=== PATIENT | male | born 1985 | race African-American/Black ===

== ENCOUNTER 2018-03-26 11:34 | Emergency (ER) | payer MEDICAID, MEDICARE ==
[~2018-03-26] VITALS: Ht 172.7 cm; Wt 86.0 kg
[~2018-03-26 11:34] MED LIST: ALBU18HF2 IH
[2018-03-26 12:19] VITALS: BP 132/88
[2018-03-26] MEDS ORDERED: KETOROLAC 30MG/ML VIAL IV STA (12:22)
[2018-03-26] MEDS ORDERED: FAMOTIDINE 20MG/2ML VIAL IV STA (12:22)
[2018-03-26] MEDS ORDERED: SODIUM CHLORIDE 0.9% 1,000 ML IV ONE (12:22)
[2018-03-26 13:29] LABS: BASOPHILS % 0.8 % (0.0-2.0); HEMATOCRIT. 45.1 % (42.0-52.0); HEMOGLOBIN. 14.8 g/dL (14.0-18.0); LYMPHOCYTES % 18.8 % (20.0-50.0); MEAN CORPUSCULAR HEMOGLOBIN 29.2 pg (28.0-32.0); MEAN CORPUSCULAR VOLUME 89.1 fL (80.0-94.0); MEAN PLATELET VOLUME 8.6 fl (7.4-10.4); NEUTROPHILS % 63.4 % (40.0-76.0); PLATELET 245 x1000/uL (130-400); RED BLOOD CELL COUNT 5.06 mill/uL (4.7-6.1); RED CELL DISTRIBUTION WIDTH 13.8 % (11.6-14.6)
[2018-03-26 13:47] LABS: CHLORIDE 108 mEq/L (98-107)
[2018-03-26] MEDS ORDERED: MAGNESIUM/ALUMINUM HYDROXIDE/SIMETHICONE 30ML UDC PO STA (14:12)
[2018-03-26] MEDS ORDERED: FAMOTIDINE 20MG TABLET PO ONE (14:15)
== END 2018-03-26 14:57 | disposition home or self-care (01) ==
LOC: ER 13:12
DX: R10.13 Epigastric pain (principal); F17.200 Nicotine dependence, unspecified, uncomplicated; Z79.899 Other long term (current) drug therapy
CPT/HCPCS: 36415; 76700; 80053; 83690; 85025; 99285; J7030

== ENCOUNTER 2018-03-30 17:05 | Emergency (ER) | payer MEDICARE ==
[~2018-03-30] VITALS: Ht 172.7 cm; Wt 86.0 kg
[2018-03-30] MEDS ORDERED: ONDANSETRON HCL 4MG/2ML VIAL IV STA (17:47)
[2018-03-30] MEDS ORDERED: MAGNESIUM/ALUMINUM HYDROXIDE/SIMETHICONE 30ML UDC PO STA (17:47)
[2018-03-30] MEDS ORDERED: SODIUM CHLORIDE 0.9% 1,000 ML IV ONE (17:47)
[2018-03-30] MEDS ORDERED: MORPHINE SULFATE 4 MG/ML CPJ (NOT FOR IM USE) IV STA (17:47)
[2018-03-30] MEDS ORDERED: KETOROLAC 30MG/ML VIAL IV STA (17:47)
[2018-03-30 17:52] LABS: BASOPHILS % 0.8 % (0.0-2.0); EOSINOPHILS % 8.5 % (0.0-5.0); HEMATOCRIT. 42.9 % (42.0-52.0); HEMOGLOBIN. 14.1 g/dL (14.0-18.0); LYMPHOCYTES % 16.8 % (20.0-50.0); MEAN CORPUSCULAR HEMOGLOBIN 29.1 pg (28.0-32.0); MEAN CORPUSCULAR VOLUME 88.3 fL (80.0-94.0); MEAN PLATELET VOLUME 8.3 fl (7.4-10.4); NEUTROPHILS % 66.9 % (40.0-76.0); PLATELET 223 x1000/uL (130-400); RED BLOOD CELL COUNT 4.85 mill/uL (4.7-6.1); RED CELL DISTRIBUTION WIDTH 13.7 % (11.6-14.6)
[2018-03-30 17:59] LABS: CHLORIDE 110 mEq/L (98-107)
[2018-03-30 18:00] LABS: INR 1.1; PROTHROMBIN TIME 11.5 sec (9.1-11.1)
[2018-03-30] MEDS ORDERED: FAMOTIDINE 20MG/2ML VIAL IV ONE (20:30)
[2018-03-30 20:50] VITALS: BP 115/73
== END 2018-03-30 20:53 | disposition home or self-care (01) ==
LOC: ER 17:05
DX: K29.70 Gastritis, unspecified, without bleeding (principal); G47.00 Insomnia, unspecified; R03.0 Elevated blood-pressure reading, without diagnosis of hypertension
CPT/HCPCS: 36415; 74176; 80053; 83690; 84484; 85025; 85610; 96361; 96374; 96375; 99285; G0482; J1885; J2270; J2405; J3490; J7030; Z7610

== ENCOUNTER 2018-04-02 20:32 | Emergency (ER) | payer MEDICARE ==
[~2018-04-02] VITALS: Ht 172.7 cm; Wt 88.0 kg
[2018-04-02 21:52] LABS: BASOPHILS % 0.9 % (0.0-2.0); EOSINOPHILS % 10.2 % (0.0-5.0); HEMATOCRIT. 45.3 % (42.0-52.0); LYMPHOCYTES % 19.7 % (20.0-50.0); MEAN CORPUSCULAR HEMOGLOBIN 29.4 pg (28.0-32.0); MEAN CORPUSCULAR VOLUME 88.7 fL (80.0-94.0); MEAN PLATELET VOLUME 8.7 fl (7.4-10.4); NEUTROPHILS % 61.2 % (40.0-76.0); PLATELET 245 x1000/uL (130-400); RED BLOOD CELL COUNT 5.11 mill/uL (4.7-6.1); RED CELL DISTRIBUTION WIDTH 13.3 % (11.6-14.6)
[2018-04-02 21:59] LABS: CHLORIDE 105 mEq/L (98-107)
[2018-04-02 22:02] LABS: PROTHROMBIN TIME 10.5 sec (9.1-11.1)
[2018-04-02] MEDS ORDERED: MAGNESIUM/ALUMINUM HYDROXIDE/SIMETHICONE 30ML UDC PO STA (23:23)
[2018-04-02] MEDS ORDERED: ONDANSETRON HCL 4MG/2ML VIAL IV STA (23:23)
[2018-04-02] MEDS ORDERED: HYDROCODONE/ACETAMINOPHEN 5/325MG TABLET PO STA (23:23)
[2018-04-02] MEDS ORDERED: VISCOUS LIDOCAINE 2% 15 ML UDC PO STA (23:23)
[2018-04-02] MEDS ORDERED: ONDANSETRON HCL 4MG TABLET PO ONE (23:45)
[2018-04-03 01:44] VITALS: BP 97/71
== END 2018-04-03 01:47 | disposition home or self-care (01) ==
LOC: ER 20:32
DX: K85.90 Acute pancreatitis without necrosis or infection, unspecified (principal); J45.909 Unspecified asthma, uncomplicated; F12.10 Cannabis abuse, uncomplicated; F15.10 Other stimulant abuse, uncomplicated; F17.200 Nicotine dependence, unspecified, uncomplicated
CPT/HCPCS: 36415; 80053; 83690; 85025; 85610; 96374; 99284; Q0162

== ENCOUNTER 2018-06-03 02:02 | Emergency (ER) | payer MEDICARE ==
[~2018-06-03] VITALS: Ht 172.7 cm; Wt 83.0 kg
[2018-06-03 02:04] VITALS: BP 113/86
== END 2018-06-03 03:17 | disposition left against medical advice (07) ==
LOC: ER 02:02
DX: Z53.21 Procedure and treatment not carried out due to patient leaving prior to being seen by health care provider (principal)

== ENCOUNTER 2018-06-06 18:20 | Emergency (ER) | payer MEDICARE ==
[~2018-06-06] VITALS: Ht 172.7 cm; Wt 78.0 kg
[2018-06-06 18:21] VITALS: BP 121/82
== END 2018-06-06 18:54 | disposition left against medical advice (07) ==
LOC: ER 18:20
DX: Z53.21 Procedure and treatment not carried out due to patient leaving prior to being seen by health care provider (principal)

== ENCOUNTER 2018-06-06 19:59 | Emergency (ER) | payer MEDICARE ==
[~2018-06-06] VITALS: Ht 172.7 cm; Wt 80.4 kg
[2018-06-06 21:37] LABS: CLARITY URINE CLEAR (CLEAR); COLOR URINE DARK YELLOW (YELLOW); KETONES URINE 1+ (NEGATIVE); LEUKOCYTE ESTERASE URINE NEGATIVE (NEGATIVE); NITRITE URINE NEGATIVE (NEGATIVE); OCCULT BLOOD URINE NEGATIVE (NEGATIVE); PH URINE 5.5 (4.5-8.0); PROTEIN URINE 1+ (NEGATIVE); SPECIFIC GRAVITY URINE 1.039 (1.005-1.030); UROBILINOGEN URINE 0.2 E.U./dL (0.2-1.0)
[2018-06-06 21:49] LABS: *BARBITURATES SCREEN URINE PRESUMTIVE POSITIVE (NEGATIVE); *BENZODIAZEPINES SCREEN URINE NEGATIVE (NEGATIVE); *COCAINE SCREEN URINE NEGATIVE (NEGATIVE)
[2018-06-06 21:51] LABS: *AMPHETAMINES SCREEN URINE PRESUMTIVE POSITIVE (NEGATIVE); CANNABINOID URINE SCREEN PRESUMTIVE POSITIVE (NEGATIVE); METHADONE URINE SCREEN NEGATIVE (NEGATIVE); OPIATES URINE SCREEN NEGATIVE (NEGATIVE); PHENCYCLIDINE URINE SCREEN NEGATIVE (NEGATIVE)
[2018-06-06 23:30] VITALS: BP 124/78
== END 2018-06-06 23:30 | disposition home or self-care (01) ==
LOC: ER 19:59
DX: R06.03 Acute respiratory distress (principal); T43.621A Poisoning by amphetamines, accidental (unintentional), initial encounter; F15.10 Other stimulant abuse, uncomplicated; Y92.89 Other specified places as the place of occurrence of the external cause; R03.0 Elevated blood-pressure reading, without diagnosis of hypertension
CPT/HCPCS: 71045; 80305; 99285

== ENCOUNTER 2018-08-07 21:42 | Emergency (ER) | payer MEDICARE | END 2018-08-07 22:01 | disposition left against medical advice (07) | LOC: ER 21:42 | DX: Z53.21 Procedure and treatment not carried out due to patient leaving prior to being seen by health care provider (principal) ==

== ENCOUNTER 2018-08-08 00:14 | Emergency (ER) | payer MEDICARE ==
[~2018-08-08] VITALS: Ht 172.7 cm; Wt 79.0 kg
[2018-08-08 00:18] VITALS: BP 118/81
== END 2018-08-08 00:30 | disposition left against medical advice (07) ==
LOC: ER 00:24
DX: Z53.21 Procedure and treatment not carried out due to patient leaving prior to being seen by health care provider (principal); R45.851 Suicidal ideations; F14.10 Cocaine abuse, uncomplicated; F12.10 Cannabis abuse, uncomplicated; F15.10 Other stimulant abuse, uncomplicated
CPT/HCPCS: 99283